=== PATIENT | male | born 1985 | race Caucasian/White ===

== ENCOUNTER 2021-12-21 12:53 | Emergency (ER) | payer MEDICAID ==
[~2021-12-21] VITALS: Ht 175.3 cm; Wt 72.6 kg
[2021-12-21 12:53] VITALS: BP_SYST 141
--- NOTE | 2021-12-21 12:53 | NUR ---
BROUGHT IN BY [facility] AND PLACED IN BED #5, TRIAGED. REPORT GIVEN TO KARYN
--- NOTE | 2021-12-21 13:10 | NUR ---
Dr Thomas evaluating patient at bedside
[2021-12-21] MEDS ORDERED: NACL 0.9% 1,000 ML IV ONE (13:15)
[2021-12-21 13:47] LABS: BASOPHILS % (AUTO) 0.3 % (0.0-2.0); EOSINOPHILS # (AUTO) 0.1 K/uL (0.0-0.4); EOSINOPHILS % (AUTO) 0.5 % (0.0-4.0); HEMATOCRIT 39.2 % (36-54); HEMOGLOBIN 13.2 g/dL (14.0-18.0); LYMPHOCYTES # (AUTO) 0.9 K/uL (1.0-5.5); LYMPHOCYTES % (AUTO) 7.7 % (20.5-51.5); MEAN CORPUSCULAR HEMOGLOBIN 28 pg (27-31); MEAN CORPUSCULAR HGB CONC 34 % (32-36); MEAN CORPUSCULAR VOLUME 83 fL (79.0-98.0); MONOCYTES # (AUTO) 0.7 K/uL (0.0-1.0); MONOCYTES % (AUTO) 6.4 % (1.7-9.3); NEUTROPHILS # (AUTO) 9.7 K/uL (1.8-7.7); NEUTROPHILS % (AUTO) 85.1 % (40.0-70.0); PLATELET COUNT (AUTO) 132 K/uL (130-430); RED BLOOD CELL COUNT(AUTO) 4.72 MIL/uL (4.2-6.2); RED CELL DISTRIBUTION WIDTH 14.9 % (9.0-15.0); WHITE BLOOD COUNT (AUTO) 11.3 K/uL (4.8-10.8)
[2021-12-21] MEDS ORDERED: VIS25 PO (14:32)
[2021-12-21 14:36] LABS: CALCIUM 8.6 mg/dL (8.4-11.0); CREATININE 0.96 mg/dL (0.55-1.30); POTASSIUM 3.5 mmol/L (3.5-5.1)
[2021-12-21 14:40] VITALS: BP_SYST 141
--- NOTE | 2021-12-21 14:41 | NUR ---
Patient given written and verbal discharge instructions and verbalizes understanding. ER MD discussed with patient the results and treatment provided. Patient in stable condition. ID arm band removed. IV catheter removed intact and dressing applied, no active bleeding. Rx of HYDROXYZINE PAMOATE given. Patient educated on pain management and to follow up with PMD. Pain Scale 4. Opportunity for questions provided and answered. Medication side effect fact sheet provided.
[2021-12-21 14:42] LABS: ALBUMIN 3.5 g/dL (3.4-4.8); TOTAL BILIRUBIN 0.6 mg/dL (0.0-1.0)
--- NOTE | 2021-12-21 15:09 | NUR ---
Note undone in EDM - 12/21/21 at 1509 by HECTOR Patient given written and verbal discharge instructions and verbalizes understanding. ER discussed with patient the results and treatment provided. Patient in stable condition. ID arm band removed. Rx of ATARAX given. Patient educated on pain management and to follow up with PMD. Pain Scale 0/10. Opportunity for questions provided and answered. Medication side effect fact sheet provided.
== END 2021-12-21 14:41 | disposition home or self-care (01) ==
LOC: SED 12:53
DX: F41.9 Anxiety disorder, unspecified (principal); R07.9 Chest pain, unspecified; R10.9 Unspecified abdominal pain; Z79.899 Other long term (current) drug therapy
CPT/HCPCS: 36415; 71045; 71250-TC; 76376; 80053; 83605; 85025; 87040; 93005; 99285